=== PATIENT | female | born 1995 | race Caucasian/White ===

== ENCOUNTER 2019-11-02 11:28 | Emergency (ER) | payer BC ==
--- NOTE | 2019-11-02 12:06 | ER Document Report ---
ED General - General Stated Complaint: FALL RIGHT ANKLE PAIN Notes: Patient is a 24-year-old white female with no reported past medical history presents to the emergency department chief complaint of right ankle pain that occurred from an injury just prior to arrival. The patient reports that she was chasing after her dog when she accidentally stepped into a ditch rolling the right ankle. She describes it being inverted. Admits to pain along the anterior ankle and dorsum. Some mild extension to the lateral malleolus. Admits to swelling in the same region. Denies any significant bruising. Denies any numbness tingling or weakness. - Related Data Allergies/Adverse Reactions: No Known Drug Allergies Allergy (Verified 11/02/19 12:07) Past Medical History - Social History Smoking Status: Unknown if Ever Smoked Family History: Reviewed & Not Pertinent Review of Systems - Review of Systems Constitutional: denies: Fever EENT: denies: Throat pain Cardiovascular: denies: Chest pain Respiratory: denies: Stridor Gastrointestinal: denies: Abdominal pain Genitourinary: denies: Pain Female Genitourinary: denies: Vaginal discharge Musculoskeletal: Joint pain Skin: denies: Lesions Hematologic/Lymphatic: denies: Easy bleeding Neurological/Psychological: denies: Lost consciousness Physical Exam - General General appearance: Appears well, Alert In distress: None - Respiratory Respiratory status: No respiratory distress Chest status: Nontender Breath sounds: Normal Chest palpation: Normal - Cardiovascular Rhythm: Regular Heart sounds: Normal auscultation - Extremities Ankle: Other - Full passive range of motion of the right ankle. 2+ DP/PT on the right. Nontender Achilles, intact by palpation. Good capillary refill distally. Tenderness is appreciated to the proximal dorsum and the anterior ankle with some mild extension to the lateral malleolus. No fifth metatarsal tenderness. - Neurological Neuro grossly intact: Yes Cognition: Normal Orientation: AAOx4 Cerebellar coordination: Other - Gait limited by pain - Psychological Associated symptoms: Normal affect, Normal mood - Skin Skin Temperature: Warm Skin Moisture: Dry Skin Color: Normal Course - Re-evaluation Re-evalutation: 11/02/19 12:44 X-rays show no acute bony process per radiologist. History and physical consistent with ankle sprain. Patient placed in an Ross wrap by nursing staff, neurovascular intact distally as evaluated by me status post. She was given crutches with instructions for use. Counseled her regarding rice. Discussed with her the importance of outpatient follow-up with orthopedics and advised that she return here or any ER immediately with any new, persistent or worsening symptoms. She verbalized understood and agreed. Discharge - Discharge Clinical Impression: Ankle sprain Qualifiers: Encounter type: initial encounter Involved ligament of ankle: unspecified ligament Laterality: right Qualified Code(s): S93.401A - Sprain of unspecified ligament of right ankle, initial encounter Condition: Stable Disposition: HOME, SELF-CARE Instructions: Ice & Elevation ([facility]), Sprained Ankle ([facility]) Additional Instructions: Follow-up with your regular doctor and/or the orthopedist in 2 to 3 days for reevaluation. Return here or any ER immediately with any new, persistent or worsening symptoms. Referrals: LIGIA DETN JR, [ACTIVE PROVISIONAL STAFF] - Follow up as needed
--- NOTE | 2019-11-02 12:43 | RADIOLOGY REPORT (SQ) ---
EXAM DESCRIPTION: ANKLE RIGHT COMPLETE IMAGES COMPLETED DATE/TIME: 11/02/2019 12:31 pm REASON FOR STUDY: injury COMPARISON: None. NUMBER OF VIEWS: Three views. TECHNIQUE: AP, lateral, and oblique radiographic images acquired of the right ankle. LIMITATIONS: None. FINDINGS: MINERALIZATION: Normal. BONES: No acute fracture or dislocation. The ankle mortise and talar dome are intact. The Achilles tendon silhouette is intact. JOINTS: No effusions. SOFT TISSUES: Soft tissue swelling around the lateral malleolus. OTHER: No other finding. IMPRESSION: Soft tissue swelling around the lateral malleolus without an associated acute osseous ab normality. TECHNICAL DOCUMENTATION: JOB ID: [id number] 2010 [employer]- All Rights Reserved Reading location - IP/workstation name: [email or web address]
== END 2019-11-02 13:00 | disposition home or self-care (01) ==
LOC: ER 11:28
DX: S93.401A Sprain of unspecified ligament of right ankle, initial encounter (principal); M25.571 Pain in right ankle and joints of right foot; X50.0XXA Overexertion from strenuous movement or load, initial encounter; Y93.89 Activity, other specified
CPT/HCPCS: 99283